=== PATIENT | female | born 1965 | race Caucasian/White ===

== ENCOUNTER 2021-06-21 07:36 | Observation (INO) | payer OTHER ==
[~2021-06-21] VITALS: Ht 167.6 cm; Wt 56.7 kg
[~2021-06-21 07:36] MED LIST: FLUOXETINE HCL20 M1 PO; MOBIC7.5 MG PO; ROPIVACAINE 246.25 MG, EPINEPHRINE HCL 1:1000 1ML 0.5 MG, CLONIDINE HCL 0.08 MG, KETORO... INJ ONE
[2021-06-21] MEDS ORDERED: DEXAMETHASONE SOD PHOS 10 MG/1 ML VIAL ONE (07:43)
[2021-06-21] MEDS ORDERED: CELECOXIB 200 MG CAP ONE (07:43)
[2021-06-21] MEDS ORDERED: GABAPENTIN 300 MG CAP ONE (07:44)
[2021-06-21] MEDS ORDERED: TRANEXAMIC ACID 1,000 MG/10 ML ML ONE (07:46)
[2021-06-21] MEDS ORDERED: Vancomycin IV 1,000 MG ONE (07:46)
[2021-06-21] MEDS ORDERED: SODIUM CHLORIDE 0.9% 500ML 500 ML ONE (07:47)
[2021-06-21] MEDS ORDERED: BUPIVACAINE 7.5MG/ML /DEXTROSE 82.5MG/ML 2 ML AMP INJ ONE (08:50)
[2021-06-21] MEDS ORDERED: ONDANSETRON HCL INJ 2MG/ML 2ML 2 MG/ML VIAL IV PRN (10:30)
[2021-06-21] MEDS ORDERED: HYDROCODONE/APAP 7.5MG-325MG 1 EA TAB PO PRN (10:30)
[2021-06-21] MEDS ORDERED: DIPHENHYDRAMINE HCL INJ 50 MG/ML VIAL IV PRN (10:30)
[2021-06-21] MEDS ORDERED: ACETAMINOPHEN 650 MG SUPP PR PRN (10:30)
[2021-06-21] MEDS ORDERED: ZOLPIDEM TARTRATE 5 MG TAB PO PRN (10:30)
[2021-06-21] MEDS ORDERED: DOCUSATE SODIUM 100 MG CAP PO PRN (10:30)
[2021-06-21] MEDS ORDERED: KETOROLAC TROMETHAMINE 30 MG/ML VIAL IV PRN (10:30)
[2021-06-21] MEDS ORDERED: HYDROCODONE/APAP 5MG-325MG TAB PO PRN (10:30)
[2021-06-21] MEDS ORDERED: SODIUM CHLORIDE 0.9% 1000ML 1,000 ML IV SCH (10:30)
[2021-06-21 15:13] VITALS: BP 93/51
[2021-06-21 15:26] VITALS: BP 117/69
[2021-06-21] MEDS ORDERED: Cefazolin 1 GM in SODIUM CHLORIDE 0.9% 50ML 50 ML IV SCH (16:00)
[2021-06-21] MEDS ORDERED: MIDAZOLAM HCL 2 MG/2 ML VIAL ONE (16:20)
[2021-06-21] MEDS ORDERED: ASPIRIN 325 MG TAB PO SCH (17:00)
[2021-06-21] MEDS ORDERED: CELECOXIB 200 MG CAP PO SCH (17:00)
[2021-06-22] MEDS ORDERED: FLUOXETINE HCL 20 MG CAP PO SCH (09:00)
[2021-06-22] MEDS ORDERED: ACETAMINOPHEN 1000 MG/100 ML IV PRN (10:30)
== END 2021-06-21 18:50 | disposition home or self-care (01) ==
LOC: OR 07:36 → PACU V 10:51 → MED/SURG 14:26
PROVIDERS: ADMIT Specialist; ATTEND Specialist
DX: M16.12 Unilateral primary osteoarthritis, left hip (principal); Z01.812 Encounter for preprocedural laboratory examination; Z20.822 Contact with and (suspected) exposure to COVID-19; F41.9 Anxiety disorder, unspecified; J41.0 Simple chronic bronchitis; F17.210 Nicotine dependence, cigarettes, uncomplicated; Z72.89 Other problems related to lifestyle
CPT/HCPCS: 27130; 72170; 86850; 86900; 86920; 96360; 96361; 97110; 97116; 97161; 97530; G0378; J0171; J0690; J1100; J1885; J2250; J2795; J3370; J7030; J7040; U0002